=== PATIENT | female | born 1975 | race Caucasian/White ===

== ENCOUNTER 2019-01-21 05:08 | Inpatient (IN) | payer OTHER ==
[2019-01-21 07:19] VITALS: BMI 45.8
[2019-01-21] MEDS ORDERED: Aztreonam 1 GM in Sodium Chloride 0.9% 100 ML IVPB SCH ×2 (08:00→11:00)
[2019-01-21] MEDS ORDERED: metroNIDAZOLE 500 MG in Premix Bag 1 BAG IVPB SCH (08:00)
[2019-01-21] MEDS: Dextrose 5 % And 0.9 % NaCl 1,000 ML IV SCH ×3 (09:45→20:08)
[2019-01-21] MEDS ORDERED: Morphine 2 MG/ML SYRINGE SLOW IVP PRN (11:12)
[2019-01-21] MEDS ORDERED: Promethazine HCl 25 MG/ML VIAL SLOW IVP PRN (11:13)
[2019-01-21] MEDS: Ondansetron PF 4 MG/2 ML Vial IVP PRN (11:20)
[2019-01-21] MEDS: Morphine 4 MG/ML VIAL SLOW IVP PRN ×2 (11:20→14:53)
[2019-01-21] MEDS ORDERED: ISOVUE-370 76%-LOCM 1 ML ONE (11:31)
[2019-01-21] MEDS ORDERED: Piperacillin/Tazobactam 3.375 GM in Sodium Chloride 0.9% 100 ML IVPB SCH (12:00)
--- NOTE | 2019-01-21 14:54 | CT ---
CT abdomen and pelvis with IV and oral contrast HISTORY: Nausea vomiting. Abdominal pain. Fever. Diverticulitis. FINDINGS: Minimal atelectasis at the lung bases. Moderate amount of gas within the biliary system. Vi carious excretion of contrast into the gallbladder from recent outside CT exam. Well-circumscribed oval mass of the left adrenal gland measures up to 3.7 cm oblique diameter on the axial images. Mesenteric fat protrudes into an umbilical hernia that does not contain bowel. Projecting superiorly from the upper sigmoid colon is an irregular pocket of gas measuring up to 5.7 cm x 4.7 cm x 4.1 cm. There is an incomplete wall formation and adjacent small pockets of gas. Moderate amount of adjacent inflammation within the fat. The abnormality appears to arise from the pandya perior wall of the proximal sigmoid colon. Oral contrast has passed distally, however, not spilling into the perforation. Urinary bladder is unremarkable. Degenerative changes lumbar spine. IMPRESSION: Mostly contained perforation of the sigmoid, with moderate adjacent inflammation. Since c ontrast did not spill into the gas collections/perforation, it suggests that the perforation has walled off. Given lack of other diverticula, it is possible that the perforation is due to other caus e, possibly neoplasm, rather than diverticulitis. Left adrenal mass, 3.[address] dedicated [address] abdomen, with and without IV contrast, for be tter characterization of the adrenal mass. Pneumobilia. Cause is not evident. Findings were called to Dr. Butt at 1441 hours. Code CR.
[2019-01-21] MEDS: Acetaminophen 1,000 MG in Premix Bag 1 BAG IVPB SCH (17:50)
[2019-01-21] MEDS: Piperacillin/Tazobactam 4.5 GM in Sodium Chloride 0.9% 100 ML IVPB SCH (17:51)
[2019-01-21] MEDS: Ketorolac Tromethamine 30 MG/ML VIAL IVP SCH (17:53)
[2019-01-21] MEDS: Enoxaparin Sodium 40 MG/0.4 ML SYRINGE SC SCH (21:29)
--- NOTE | 2019-01-21 22:25 | HP ---
CHIEF COMPLAINT: Left lower quadrant abdominal pain. HISTORY OF PRESENT ILLNESS: The patient is a 43-year-old morbidly obese white female (BMI is 46). She is from [place]. Yesterday, at about 3 in the afternoon, she had fairly sudden onset of left lower quadrant abdominal pain. This pain remained severe and in the last evening, she presented to the hospital in [place] at which point, a CT scan and labs were obtained. CT scan showed evidence of perforated diverticulitis as well as a left adrenal mass. White blood cell count was elevated at 12.2. The patient was transferred to this facility for further evaluation and treatment. She denies any history of colon problems or known diverticular disease. She has never had a colonoscopy. She notes intermittent problems with constipation. PAST MEDICAL HISTORY: Significant for gastroesophageal reflux disease and morbid obesity. She had a deep venous thrombosis/pulmonary embolism last year, for which she took anticoagulants, but does no longer. She also has a history of seizure disorder, although she has either had a seizure or been on medications for over 5 years. PAST SURGICAL HISTORY: She had a breast biopsy for benign disease and two prior sections. ALLERGIES: SHE CLAIMS AN ALLERGY TO PENICILLIN. MEDICATIONS: Prilosec. PERSONAL AND SOCIAL HISTORY: She lives with her father in [place]. She has two teenage children. 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 She does not have a license as an [employer] currently. She smokes about a half pack per day of cigarettes. She denies significant alcohol use. Her primary care physician is Dr. Stapleton. PHYSICAL EXAMINATION: VITAL SIGNS: She has been afebrile. Her current temperature however is 100.7, pulse is 75 to 90, blood pressure 114/76. GENERAL: She is a well-developed, well-nourished, pleasant, alert, obese, white female, resting in bed, in moderate distress. She is alert and oriented x3. Her father is present at bedside. HEAD, EYES, EARS, NOSE, AND THROAT: Unremarkable. NECK: Supple. LUNGS: Clear to auscultation. CARDIAC: Regular rate and rhythm. ABDOMEN: Obese, but soft and nontender except in the left lower quadrant, where she is focally tender and has guarding. EXTREMITIES: Unremarkable. LABORATORY DATA: Her labs obtained from [place] revealed a white blood cell count of 12.2 with a hemoglobin of 11.9, and platelet count of 333. Her chemistry panel shows elevated glucose of 157. Her electrolytes are essentially normal, although her CO2 is little bit low at 19. A CT scan was obtained here today as we could not locate films from [facility] from her prior CT scan. I have her report, however. The CT scan that was done today shows a dense area of inflammation with evidence of microperforation surrounding the sigmoid colon with the maximum area for inflammation being about 5 cm. ASSESSMENT: The patient with microperforated diverticulitis. PLAN: Treatment with conservative measures using IV antibiotics and pain medication, IV fluids, until this hopefully begins to resolve over the next 2 to 4 days. If she can get to this point, then hopefully she will be able to be discharged home and have an elective sigmoid colectomy at some point in 6 to 8 weeks. She will require colonoscopy in about a month as well. I have discussed all this with the patient and her father. She understands and agrees to proceed with observation as planned. She understands that if she fails this, then she might require either a laparoscopic washout or as much as the laparotomy with a Roney's procedure. Job ID: [id number]
[2019-01-22] MEDS: Ketorolac Tromethamine 30 MG/ML VIAL IVP SCH ×4 (00:53→19:06)
[2019-01-22] MEDS: Acetaminophen 1,000 MG in Premix Bag 1 BAG IVPB SCH ×3 (00:55→11:54)
[2019-01-22] MEDS: Piperacillin/Tazobactam 4.5 GM in Sodium Chloride 0.9% 100 ML IVPB SCH ×4 (01:16→18:50)
[2019-01-22] MEDS: Dextrose 5 % And 0.9 % NaCl 1,000 ML IV SCH (04:55)
[2019-01-22] MEDS: Ondansetron PF 4 MG/2 ML Vial IVP PRN ×2 (06:01→12:10)
[2019-01-22 07:30] LABS: #Eosinphils 0.2 thou/uL (0.0-0.7); #Lymphocytes 1.2 thou/uL (1.20-3.40); #Monocytes 0.7 thou/uL (0.11-0.59); #Neutrophils 6.1 thou/uL (1.40-6.50); %Basophils 0.2 % (0.0-1.0); %Lymphocytes 14.3 % (21.0-51.0); %Monocytes 8.1 % (0.0-10.0); %Neutrophils 74.5 % (42.0-75.0); Hemoglobin 10.2 g/dL (12.0-16.0); Mean Corpuscular HGB CONC 31.5 g/dL (32.0-36.0); Mean Corpuscular Volume 88.9 fL (78.0-98.0); Mean Platelet Volume 7.6 fL (7.4-10.4); Platelet Count 220 thou/uL (130-400); RBC Distribution Width 12.8 % (11.5-14.5); Red Blood Cell (RBC) Count 3.65 mill/uL (4.20-5.40); White Blood Cell (WBC) Count 8.2 thou/uL (4.8-10.8)
[2019-01-22 07:50] LABS: Anion Gap 9 mmol/L (10-20); BUN (Urea Nitrogen) 10 mg/dL (7.0-18.7); Calc. Creatinine Clearance 173 mL/min (70-130); Calcium 10.2 mg/dL (7.8-10.44); Carbon Dioxide 22 mmol/L (22-29); Chloride 109 mmol/L (98-107); Estimated GFR-MDRD 81; Glucose 99 mg/dL (70-105); Potassium 3.4 mmol/L (3.5-5.1); Sodium 137 mmol/L (136-145)
--- NOTE | 2019-01-22 09:47 | PRG ---
DATE OF SERVICE: 01/22/2019 SUBJECTIVE: Ms. Seals is hospital day #2. She was found to have an area of diverticulitis with severe surrounding inflammation in the sigmoid colon. This is felt to be a contained perforation. There is no evidence of spillage of contrast with her CT scan. She also has a left adrenal mass, which requires better evaluation later. She has done well overnight. She tells me she still has some episodes of nausea and some pain. OBJECTIVE: VITAL SIGNS: On examination, she is afebrile, pulse is in between 75 and 90, and blood pressure 107/67. LUNGS: Clear to auscultation. ABDOMEN: Obese, but soft with less tenderness. Bowel sounds are present and normoactive. LABORATORY DATA: Her white blood cell count this morning is 8.2 with a normal differential. Hemoglobin is 10. Basic metabolic panel is essentially unremarkable. ASSESSMENT: The patient is doing well, receiving intravenous antibiotics. I recommend continued IV antibiotics. We will initiate clear liquids today. Hopefully, she will continue to progress, and I will be able to discharge her on oral medication in a couple of days. Job ID: [id number]
[2019-01-22] MEDS: D5 1/2 NS w/20 mEq KCL 1,000 ML IV SCH ×2 (10:19→21:22)
[2019-01-22] MEDS: Enoxaparin Sodium 40 MG/0.4 ML SYRINGE SC SCH (21:21)
[2019-01-23] MEDS: D5 1/2 NS w/20 mEq KCL 1,000 ML IV SCH ×5 (00:30→14:26)
[2019-01-23] MEDS: Ketorolac Tromethamine 30 MG/ML VIAL IVP SCH ×4 (00:31→17:41)
[2019-01-23] MEDS: Piperacillin/Tazobactam 4.5 GM in Sodium Chloride 0.9% 100 ML IVPB SCH ×3 (00:31→11:39)
[2019-01-23 05:24] LABS: #Eosinphils 0.3 thou/uL (0.0-0.7); #Lymphocytes 1.8 thou/uL (1.20-3.40); #Monocytes 0.4 thou/uL (0.11-0.59); %Eosinophils 4.3 % (0.0-10.0); %Lymphocytes 24.4 % (21.0-51.0); %Monocytes 5.6 % (0.0-10.0); %Neutrophils 65.7 % (42.0-75.0); Hemoglobin 9.3 g/dL (12.0-16.0); Mean Corpuscular HGB CONC 31.5 g/dL (32.0-36.0); Mean Corpuscular Hemoglobin 28.3 pg (27.0-31.0); Mean Corpuscular Volume 89.7 fL (78.0-98.0); Mean Platelet Volume 7.7 fL (7.4-10.4); Platelet Count 241 thou/uL (130-400); RBC Distribution Width 12.7 % (11.5-14.5); Red Blood Cell (RBC) Count 3.28 mill/uL (4.20-5.40); White Blood Cell (WBC) Count 7.6 thou/uL (4.8-10.8)
[2019-01-23 05:45] LABS: ALT (SGPT) 7 U/L (8-55); AST (SGOT) 9 U/L (5-34); Albumin 2.8 g/dL (3.5-5.0); Alkaline Phosphatase 74 U/L (40-150); Anion Gap 9 mmol/L (10-20); BUN (Urea Nitrogen) 7 mg/dL (7.0-18.7); Bilirubin, Total Less than 0.2 mg/dL (0.2-1.2); Calc. Creatinine Clearance 180 mL/min (70-130); Calcium 9.6 mg/dL (7.8-10.44); Carbon Dioxide 20 mmol/L (22-29); Chloride 110 mmol/L (98-107); Estimated GFR-MDRD 85; Globulin 2.9 g/dL (2.4-3.5); Glucose 100 mg/dL (70-105); Potassium 3.5 mmol/L (3.5-5.1); Protein, Total 5.7 g/dL (6.0-8.3); Sodium 135 mmol/L (136-145)
[2019-01-23] MEDS ORDERED: HYDROcodone/Acetaminophen 7.5/325 mg Tablet PO PRN (11:51)
[2019-01-23] MEDS ORDERED: Acetaminophen 500 MG TAB PO PRN (14:17)
[2019-01-23] MEDS: metroNIDAZOLE 500 MG TAB PO SCH ×2 (14:26→20:26)
--- NOTE | 2019-01-23 17:32 | PRG ---
DATE OF SERVICE: 01/23/2019 SUBJECTIVE: Ms. Seals is hospital day #3 following admission for microperforated sigmoid diverticulitis. She has been on Zosyn until today. Her white blood cell count is 7.6 with a normal differential, and she has been afebrile with normal vital signs. Today, her Zosyn will be discontinued and she will be switched over to oral medication. She notes that she has upper abdominal pain whenever she seems to drink anything. I assured her that this has nothing to do with her diverticulitis, but I am not certain what the source of this is. She is ambulating. OBJECTIVE: VITAL SIGNS: On examination, she is afebrile, pulse 66, blood pressure 120/66. ABDOMEN: Soft, nontender, and nondistended. She has mild discomfort in left lower quadrant. ASSESSMENT: The patient with resolving perforated diverticulitis. PLAN: I will discontinue her IV antibiotics and switch her over to oral antibiotics using Flagyl and Cipro. Plan is to discharge her to home tomorrow on the same medications. Job ID: [id number]
[2019-01-23] MEDS: Enoxaparin Sodium 40 MG/0.4 ML SYRINGE SC SCH (20:26)
[2019-01-23] MEDS: Ciprofloxacin 500 MG TAB PO SCH (20:26)
[2019-01-24] MEDS: D5 1/2 NS w/20 mEq KCL 1,000 ML IV SCH (00:05)
[2019-01-24] MEDS: Ketorolac Tromethamine 30 MG/ML VIAL IVP SCH ×2 (00:05→06:02)
[2019-01-24 04:25] VITALS: TEMP 98.1
[2019-01-24] MEDS: Ciprofloxacin 500 MG TAB PO SCH (06:01)
[2019-01-24 07:51] VITALS: BP 132/74
[2019-01-24] MEDS: metroNIDAZOLE 500 MG TAB PO SCH (09:27)
== END 2019-01-24 10:50 | disposition home or self-care (01) | DRG 392 ==
LOC: ERS 05:08 → SURG A 06:07
PROVIDERS: ADMIT Specialist; ATTEND Specialist
DX: K57.20 Diverticulitis of large intestine with perforation and abscess without bleeding (principal); Z68.42 Body mass index [BMI] 45.0-49.9, adult; E66.01 Morbid (severe) obesity due to excess calories; K21.9 Gastro-esophageal reflux disease without esophagitis; G40.909 Epilepsy, unspecified, not intractable, without status epilepticus; F17.210 Nicotine dependence, cigarettes, uncomplicated; Z86.711 Personal history of pulmonary embolism; Z79.01 Long term (current) use of anticoagulants; Z86.718 Personal history of other venous thrombosis and embolism; Z88.0 Allergy status to penicillin
CPT/HCPCS: 36415; 74177; 80048; 80053; 85025; 96360; 99406; J0131; J1650; J1885; J2270; J2405; J2543; J3490; Q9966